=== PATIENT | male | born 1960 | race Caucasian/White ===

== ENCOUNTER → 2018-08-06 | Outpatient (CLI) | payer OTHER ==
[~2018-08-06] MED LIST: PREDNISONE 10 M10 M1 PO; RELAFEN750 MG PO
== END ==
LOC: HYPER 07:37
DX: S81.811D Laceration without foreign body, right lower leg, subsequent encounter (principal); I87.2 Venous insufficiency (chronic) (peripheral); I89.0 Lymphedema, not elsewhere classified; L84 Corns and callosities; Y93.D3 Activity, furniture building and finishing

== ENCOUNTER → 2018-08-16 | Outpatient (CLI) | payer OTHER | LOC: HYPER 07:09 | DX: S81.811D Laceration without foreign body, right lower leg, subsequent encounter (principal); I87.2 Venous insufficiency (chronic) (peripheral); I89.0 Lymphedema, not elsewhere classified; X58.XXXD Exposure to other specified factors, subsequent encounter; L84 Corns and callosities ==

== ENCOUNTER → 2018-08-23 | Outpatient (CLI) | payer OTHER | LOC: HYPER 08-20 09:01 | DX: S81.811D Laceration without foreign body, right lower leg, subsequent encounter (principal); I87.2 Venous insufficiency (chronic) (peripheral); I89.0 Lymphedema, not elsewhere classified; L84 Corns and callosities; X58.XXXD Exposure to other specified factors, subsequent encounter ==

== ENCOUNTER → 2018-08-30 | Outpatient (CLI) | payer OTHER | LOC: HYPER 06:55 | DX: S81.811D Laceration without foreign body, right lower leg, subsequent encounter (principal); L84 Corns and callosities; I89.0 Lymphedema, not elsewhere classified; I87.2 Venous insufficiency (chronic) (peripheral); X58.XXXD Exposure to other specified factors, subsequent encounter ==

== ENCOUNTER → 2018-09-06 | Outpatient (CLI) | payer OTHER | LOC: HYPER 06:52 | DX: S81.811D Laceration without foreign body, right lower leg, subsequent encounter (principal); L84 Corns and callosities; I87.2 Venous insufficiency (chronic) (peripheral); I89.0 Lymphedema, not elsewhere classified; X58.XXXD Exposure to other specified factors, subsequent encounter ==

== ENCOUNTER → 2018-09-20 | Outpatient (CLI) | payer OTHER | LOC: HYPER 06:53 | DX: S81.811D Laceration without foreign body, right lower leg, subsequent encounter (principal); L84 Corns and callosities; I87.2 Venous insufficiency (chronic) (peripheral); I89.0 Lymphedema, not elsewhere classified; X58.XXXD Exposure to other specified factors, subsequent encounter ==